=== PATIENT | female | born 1970 ===

== ENCOUNTER 2018-02-09 16:45 | Observation (INO) | payer BC ==
[2018-02-09] MEDS ORDERED: Sodium Chloride 0.9% 1,000 ML IV SCH (17:00)
--- NOTE | 2018-02-09 17:22 | CT ---
Date of service: 02/09/2018 PROCEDURE: CT HEAD WITHOUT CONTRAST. HISTORY: code stroke COMPARISON: None available. TECHNIQUE: Axial computed tomography images were obtained through the head/brain without intravenous contrast. Radiation dose: Total exam DLP = 728.59 mGy-cm. This CT exam was performed using one or more of the following dose reduction techniques: Automated exposure control, adjustment of the mA and/or kV according to patient size, and/or use of iterative reconstruction technique. FINDINGS: HEMORRHAGE: No intracranial hemorrhage. BRAIN: No mass effect or edema. No atrophy or chronic microvascular ischemic changes. VENTRICLES: Unremarkable. No hydrocephalus. CALVARIUM: Unremarkable. PARANASAL SINUSES: Unremarkable as visualized. No significant inflammatory changes. MASTOID AIR CELLS: Unremarkable as visualized. No inflammatory changes. OTHER FINDINGS: None. IMPRESSION: Normal CT of the Head. No intracranial mass, hemorrhage or evidence of acute infarct. The findings in this examination were discussed by telephone with Dr. Coreas at 5:17 p.m. on 02/09/2018.
--- NOTE | 2018-02-09 17:28 | ED PDOC ---
HPI:STROKE - Time Time: 17:00 - Historian Historian: Patient - Chief Complaint Chief Complaint: Numbness - Onset Date: 02/09/18 Time: 15:45 Onset: This afternoon - Context Context: Sitting - Location Locate right:: Upper extremity - Radiation Radiation: None - Severity of pain Maximum severity:: None - Notes: Notes:: 47y/o female with a PMHx of HTN presents to the ED for evaluation of left arm numbness, onset at 3:45 PM this afternoon. Patient states she was typing while at work when she developed left arm numbness from the shoulder to the hand. Patient reports she has been experiencing financial stress recently and was emotional when she developed a "crink" in her neck last week. Patient additionally reports of feeling "cloudiness" and a pressure like sensation to the head for the past week. However, patient denies headaches Patient states after waking up, she has since felt neck stiffness. Patient reports she went to her PMD on Friday where she had an EKG done that resulted in slight abnormality. However, patient states her PMD said it was not concerning due to her change in diet while taking her HTN medication. Patient reports recently changed her diet and started eating less sodium and carbohydrates. Patient states her PMD lowered her HTN due to this change in diet. Patient denies visual changes and weakness. PMD: Aneesh Villagomez NIHSS Stroke Scale - Date/Time Evaluation Performed Date Performed: 02/09/18 Time Performed: 17:15 When Was NIHSS Performed: Code Stroke - How Severe is the Stroke Level of Consciousness: 0=Alert LOC to Questions: 0=Both comments correct LOC to commands: 0=Obeys both correctly Best Gaze: 0=Normal Visual: 0=No visual loss Facial: 0=Normal Motor Arm - Left: 0=No drift Motor Arm - Right: 0=No drift Motor Leg - Left: 0=No drift Motor Leg - Right: 0=No drift Limb Ataxia: 0=Absent Sensory: 0=Normal Best Language: 0=No aphasia Dysarthia: 0=Normal articulation Extinction & Inattention (Neglect): 0=Normal, no object Score: 0 rTPA Inclusion/Exclusion - Refusal of Treatment Patient Refused Treatment: No - Inclusion Criteria for Altepase Patient is 18 years or Older: Yes The Clinical Diagnosis of Ischemic Stroke That is Causing a Potentially Disablin g Neurological Deficit: No Time of Onset is Well Established to be Less Than 270 Minute Before Treatment Would Begin: Yes Risk/Benefit Discussed With Patient/Family Member Present: No - Exclusion Criteria for Altepase Uncontrolled Hypertension at Time of Treatment (Systolic BP above 185 or Diastolic BP above 110 mmHg): No Active Internal Bleeding: No Known Bleeding Diathesis Including but Not Limited to: Platelets Below 100,000/mm,PTT Above 40 sec After Heparin Use, Current Use of Oral Anitcoagulant With INR Greater Than 1.7 or PT Greater Than 15 secs: No Evidence of an Intracranial Hemorrhage: No Evidence of Major Acute Infarct With Signs Greater Than 1/3 MCA Territory: No Suspicion of Subarachnoid Hemorrhage on Pretreatment Evaluation Even if CT Head Negative For Hemorrhage: No Past Medical History Reviewed: Historical Data, Nursing Documentation, Vital Signs Vital Signs: Last Vital Signs Temp 98.6 F 02/09/18 16:57 Pulse 88 02/09/18 16:57 Resp 18 02/09/18 16:57 BP 148/98 H 02/09/18 16:57 Pulse Ox 99 02/09/18 16:57 - Medical History PMH: HTN - Surgical History Surgical History: Appendectomy, Tonsillectomy - Family History Family History: States: Unknown Family Hx - Social History Current smoker - smoking cessation education provided: No Alcohol: None Drugs: Denies - Immunization History Hx Tetanus Toxoid Vaccination: No Hx Influenza Vaccination: No Hx Pneumococcal Vaccination: No - Home Medications Home Medications: Ambulatory Orders Medication Instructions Recorded Lisinopril [Zestril] 10 mg PO DAILY 05/19/16 - Allergies Allergies/Adverse Reactions: Allergies Allergy/AdvReac Type Severity Reaction Status Date / Time moxifloxacin HCl Allergy RASH Verified 05/19/16 16:12 [From Avelox] Review of Systems ROS Statement: Except As Marked, All Systems Reviewed And Found Negative Eyes: Negative for: Vision Change Musculoskeletal: Positive for: Neck Pain Neurological: Positive for: Numbness, Other ("cloudiness"/"pressure-like sensation"). Negative for: Weakness, Headache Physical Exam - Reviewed Nursing Documentation Reviewed: Yes Vital Signs Reviewed: Yes - Physical Exam Appears: Positive for: No Acute Distress Head Exam: Positive for: ATRAUMATIC, NORMOCEPHALIC Skin: Positive for: Normal Color, Warm, Dry Eye Exam: Positive for: Normal appearance, EOMI, PERRL Neck: Positive for: Normal Cardiovascular/Chest: Positive for: Regular Rate, Rhythm. Negative for: Murmur Respiratory: Positive for: Normal Breath Sounds. Negative for: Respiratory Distress Gastrointestinal/Abdominal: Positive for: Normal Exam, Soft. Negative for: Tenderness Extremity: Positive for: Normal ROM. Negative for: Deformity Neurologic/Psych: Positive for: Alert, roofer helper II-XII (intact), Oriented (x3), Cerebellar Tests (normal), Gait (steady). Negative for: Motor/Sensory Deficits, Aphasia, Facial Droop - Laboratory Results Result Diagrams: 02/09/18 17:19 02/09/18 17:19 - ECG Interpretation Of ECG: NSR @ 78, no ST-T changes. O2 Sat by Pulse Oximetry: 99 (RA) Pulse Ox Interpretation: Normal Medical Decision Making Medical Decision Making: Time: 1658 Impression: Possible Stroke Plan: -- Code Stroke called -- CT Head w/o Contrast -- EKG -- Stroke Team Consult -- CXR Portable XR -- Glucose, POC -- Manager Functional -- Call Stroke Team Consult -- ED Obtain Labs -- Glucose, Blood, POC -- Nursing Swallow Screen -- Vital Signs Q15MIN Time: 151 -- Received call from radiologist who reports CT Head is negative. Time: 171 Plan: -- Sodium Chloride 0.9% IV 100 mls/hr -- PTT -- Prothrombin time -- CBC with Differentials -- Troponin I -- Lipid Panel -- Hemoglobin A1C -- CMP -- Type and Screen Time: 173 Plan: -- Aspirin 325 mg PO Time: 1739 -- Spoke to neurologist, Dr. Abel at this time who states patient is not a candidate for tPa. Patient to be admitted for MRI. Scribe Attestation: Documented by Gisela Delaney, acting as a scribe for Massiel Coreas MD Provider Scribe Attestation: All medical record entries made by the Chandra were at my direction and person ally dictated by me. I have reviewed the chart and agree that the record accurately reflects my personal performance of the history, physical exam, medical decision making, and the department course for this patient. I have also personally directed, reviewed, and agree with the discharge instructions and disposition. Disposition - Clinical Impression Clinical Impression: LUE numbness - Patient ED Disposition Is Patient to be Admitted: Yes - Disposition Disposition Time: 18:32 Condition: STABLE - Pt Status Changed To: Hospital Disposition Of: Inpatient - Admit Certification Admit to Inpatient:: After my assessment, the patient will require hospitalization for at least two midnights. This is because of the severity of symptoms shown, intensity of services needed, and/or the medical risk in this patient being treated as an outpatient. - POA Present On Arrival: None
[2018-02-09 17:29] LABS: BASO # 0.1 K/uL (0.0-0.2); BASO % 0.8 % (0.0-2.0); EOS # 0.2 K/uL (0.0-0.7); EOS % 1.5 % (0.0-4.0); HEMOGLOBIN 13.3 g/dL (12.0-16.0); LYMPH # 3.4 K/uL (1.0-4.3); LYMPH % 30.6 % (20.0-40.0); MEAN CELL VOLUME 80.2 fl (81.0-99.0); MEAN CORPUSCULAR HEMOGLOBIN 26.4 pg (27.0-31.0); MEAN CORPUSCULAR HGB CONC 32.9 g/dL (33.0-37.0); MEAN PLATELET VOLUME 9.3 fl (7.2-11.7); MONO % 8.6 % (0.0-10.0); NEUT # 6.6 K/uL (1.8-7.0); NEUT % 58.5 % (50.0-75.0); NRBC % 0.1 % (0.0-0.0); RBC 5.03 Mil/uL (3.80-5.20); RED CELL DISTRIBUTION WIDTH 13.3 % (11.5-14.5); WHITE BLOOD COUNT 11.2 K/uL (4.8-10.8)
[2018-02-09 17:39] LABS: ALB/GLOB RATIO 1.3 (1.0-2.1); ALBUMIN 4.5 g/dL (3.5-5.0); ALT/SGPT 32 U/L (9-52); AST/SGOT 27 U/L (14-36); BLOOD UREA NITROGEN 19 mg/dl (7-17); CALCIUM 9.5 mg/dL (8.4-10.2); GFR NON-AFRICAN AMERICAN 60; HDL CHOLESTEROL 45 MG/DL (30-70)
[2018-02-09 17:42] LABS: PROTHROMBIN TIME 10.8 Seconds (9.8-13.1)
[2018-02-09 17:44] LABS: PARTIAL THROMBOPLASTIN TIME 33.7 Seconds (25.6-37.1)
--- NOTE | 2018-02-09 17:46 | RAD ---
Date of service: 02/09/2018 HISTORY: Code Stroke COMPARISON: No prior. FINDINGS: LUNGS: No active pulmonary disease. PLEURA: No significant pleural effusion identified, no pneumothorax apparent. CARDIOVASCULAR: No aortic atherosclerotic calcification present OSSEOUS STRUCTURES: No significant abnormalities. VISUALIZED UPPER ABDOMEN: Normal. OTHER FINDINGS: None. IMPRESSION: No active disease.
[2018-02-09 17:50] LABS: LDL CHOLESTEROL 99 mg/dL (0-129)
[2018-02-10 04:41] VITALS: RESP 18
--- NOTE | 2018-02-10 06:55 | CARD ---
APPROVED REPORT Date of service: 02/09/2018 EKG Measurement Heart [id number] <Conclusion> Normal sinus rhythm Normal ECG
[2018-02-10] MEDS ORDERED: Omega-3-Acid Ethyl Esters 1 GM Cap PO SCH (09:00)
--- NOTE | 2018-02-10 11:10 | MRI ---
Date of service: 02/09/2018 PROCEDURE: MRI BRAIN WITHOUT CONTRAST HISTORY: LUE numbness COMPARISON: Noncontrast head CT from 02/09/2018 TECHNIQUE: Multiplanar, multisequence MR images of the brain were obtained without intravenous contrast enhancement. FINDINGS: HEMORRHAGE: None DWI: No evidence of an acute or early subacute infarction. BRAIN PARENCHYMA: Smith-white matter differentiation is preserved. There is a 1.5 x 1.8 x 3.6 cm CSF intensity left paramedian retro cerebellar mass with mild mass effect on the posterior medial cerebellar hemisphere without vasogenic edema or midline shift. There is no abnormal extra-axial fluid collection. There is no territorial infarction. The midline sagittal structures are normal. VENTRICLES: There is mild age-related global parenchymal volume loss and proportionate enlargement of the ventricles and cortical sulci. CRANIUM: There is normal bone marrow signal pattern. ORBITS: Grossly unremarkable. PARANASAL SINUSES/MASTOIDS: Predominantly clear. VASCULAR SYSTEM: There are normal signal voids in the larger intracranial arteries. OTHER FINDINGS: None. IMPRESSION: No acute intracranial abnormality. Mild global parenchymal volume loss, slightly advanced for the patient's age. 1.5 x 1.8 x 3.6 cm left paramedian retro cerebellar CSF intensity mass presumably an arachnoid cyst without evidence of mass effect midline shift or vasogenic edema in the left cerebellar hemisphere.
--- NOTE | 2018-02-10 12:08 | CP.PCM.HP ---
History of Present Illness - History of Present Illness History of Present Illness: 47y/o female with a PMHx of HTN presents to the ED c/o left arm numbness x 1 day. Patient states she was typing while at work when she developed left arm numbness from the shoulder to the hand. Also she states she has been having some neck pain and stiffness since last week. She reports she has been experiencing financial stress recently and has been very emotional. She went to her PMD they did an EKG that was "abnormal" but PMD change BP medications. Otherwise she denies vision changes, headaches, chest pain, palpitations, sob, weakness or tingling. PMD: Aneesh Villagomez PMH: HTN PSH: Appendectomy, Tonsillectomy allergies to moxifloxacin ( hives) Meds: as bellow FMH: noncontributory SH: denies etoh, tobacco, drugs Present on Admission - Present on Admission Any Indicators Present on Admission: No Review of Systems - Review of Systems All systems: reviewed and no additional remarkable complaints except (HPI) Past Patient History - Past Social History Smoking Status: Former Smoker - CARDIAC Hx Cardiac Disorders: Yes - PULMONARY Hx Respiratory Disorders: No - NEUROLOGICAL Hx Neurological Disorder: No - HEENT Hx HEENT Problems: No - RENAL Hx Chronic Kidney Disease: No - ENDOCRINE/METABOLIC Hx Endocrine Disorders: No - HEMATOLOGICAL/ONCOLOGICAL Hx Blood Disorders: No - INTEGUMENTARY Hx Dermatological Problems: No - MUSCULOSKELETAL/RHEUMATOLOGICAL Hx Musculoskeletal Disorders: No - GASTROINTESTINAL Hx Gastrointestinal Disorders: No - GENITOURINARY/GYNECOLOGICAL Hx Genitourinary Disorders: No - PSYCHIATRIC Hx Psychophysiologic Disorder: No - SURGICAL HISTORY Hx Surgeries: Yes Hx Appendectomy: Yes Hx Tonsillectomy: Yes Other/Comment: oophorectomy with multiple fibroid removal,as per pt she has no menstruation since 2012 - ANESTHESIA Hx Anesthesia: Yes Hx Anesthesia Reactions: No Hx Malignant Hyperthermia: No Has any member of the family had a problem w/ anesthesia?: No Meds Home Medications: Home Medication List Medication Instructions Recorded Confirmed Type [id number]-[id number] Ethyl Esters 1 GM 2 gm PO BID #60 sgl 02/10/18 Rx [Lovaza] Allergies/Adverse Reactions: Allergies Allergy/AdvReac Type Severity Reaction Status Date / Time moxifloxacin HCl Allergy RASH Verified 05/19/16 16:12 [From Avelox] Physical Exam - Constitutional Appears: No Acute Distress - Head Exam Head Exam: NORMAL INSPECTION - Eye Exam Eye Exam: EOMI, PERRL. absent: Nystagmus - Respiratory Exam Respiratory Exam: Clear to Auscultation Bilateral - Cardiovascular Exam Cardiovascular Exam: REGULAR RHYTHM, +S1, +S2 - GI/Abdominal Exam GI & Abdominal Exam: Soft. absent: Distended, Tenderness - Extremities Exam Extremities exam: Negative for: calf tenderness, pedal edema - Neurological Exam Neurological exam: Alert, CN II-XII Intact, Oriented x3 - Skin Skin Exam: Dry, Warm Results - Vital Signs Recent Vital Signs: Last Vital Signs Temp 98.6 F 02/10/18 08:00 Pulse 65 02/10/18 09:22 Resp 18 02/10/18 08:00 BP 111/70 02/10/18 09:22 Pulse Ox 96 02/10/18 08:00 - Labs Result Diagrams: 02/09/18 17:19 02/09/18 17:19 Labs: Laboratory Results - last 24 hr 02/09/18 02/09/18 02/09/18 16:57 17:19 17:19 WBC 11.2 H RBC 5.03 Hgb 13.3 Hct 40.3 MCV 80.2 L MCH 26.4 L MCHC 32.9 L RDW 13.3 Plt Count 242 MPV 9.3 Neut % (Auto) 58.5 Lymph % (Auto) 30.6 [place] % (Auto) 8.6 Eos % (Auto) 1.5 Baso % (Auto) 0.8 Neut # (Auto) 6.6 Lymph # (Auto) 3.4 [place] # (Auto) 1.0 H Eos # (Auto) 0.2 Baso # (Auto) 0.1 PT INR APTT Sodium 140 Potassium 3.6 Chloride 104 Carbon Dioxide 30 Anion Gap 10 BUN 19 H Creatinine 1.0 Est GFR ( Amer) > 60 Est GFR (Non-Af Amer) 60 POC Glucose (mg/dL) 78 Random Glucose 93 Calcium 9.5 Total Bilirubin 0.3 AST 27 ALT 32 Alkaline Phosphatase 80 Troponin I < 0.0120 Total Protein 8.1 Albumin 4.5 Globulin 3.6 Albumin/Globulin Ratio 1.3 Triglycerides 248 H Cholesterol 173 LDL Cholesterol Direct 99 HDL Cholesterol 45 Blood Type Antibody Screen BBK History Checked 02/09/18 02/09/18 17:19 17:19 WBC RBC Hgb Hct MCV MCH MCHC RDW Plt Count MPV Neut % (Auto) Lymph % (Auto) [place] % (Auto) Eos % (Auto) Baso % (Auto) Neut # (Auto) Lymph # (Auto) [place] # (Auto) Eos # (Auto) Baso # (Auto) PT 10.8 INR 1.0 APTT 33.7 Sodium Potassium Chloride Carbon Dioxide Anion Gap BUN Creatinine Est GFR ( Amer) Est GFR (Non-Af Amer) POC Glucose (mg/dL) Random Glucose Calcium Total Bilirubin AST ALT Alkaline Phosphatase Troponin I Total Protein Albumin Globulin Albumin/Globulin Ratio Triglycerides Cholesterol LDL Cholesterol Direct HDL Cholesterol Blood Type B NEGATIVE Antibody Screen Negative BBK History Checked No verified bt Assessment & Plan - Assessment and Plan (Free Text) Assessment: 47 yo female patient with PMH of HTN admitted due to LUE numbness x1 day, r/o CVA Plan: - admit to tele - ASA - Head CT negative - Neurology consulted, input appreciated - labs wnl - f/U brain MRI - PT/OT eval - rest of plan as ordered Case seen and examined with Dr Lopez
[2018-02-10 12:43] VITALS: BP 131/77; PULSE 77; TEMP 97.3; O2SAT 98
--- NOTE | 2018-02-10 13:48 | CP.PCM.CON ---
History of Present Illness - History of Present Illness History of Present Illness: Neurology consult dictated. In brief, patient most likely has cervical radiculopathy and now is stable. he does not appear to have had a stroke. Cleared to be discharged home with outpatient Cervical MRI . Thank you Dr. lovett Past Patient History - Past Social History Smoking Status: Former Smoker - CARDIAC Hx Cardiac Disorders: Yes - PULMONARY Hx Respiratory Disorders: No - NEUROLOGICAL Hx Neurological Disorder: No - HEENT Hx HEENT Problems: No - RENAL Hx Chronic Kidney Disease: No - ENDOCRINE/METABOLIC Hx Endocrine Disorders: No - HEMATOLOGICAL/ONCOLOGICAL Hx Blood Disorders: No - INTEGUMENTARY Hx Dermatological Problems: No - MUSCULOSKELETAL/RHEUMATOLOGICAL Hx Musculoskeletal Disorders: No - GASTROINTESTINAL Hx Gastrointestinal Disorders: No - GENITOURINARY/GYNECOLOGICAL Hx Genitourinary Disorders: No - PSYCHIATRIC Hx Psychophysiologic Disorder: No - SURGICAL HISTORY Hx Surgeries: Yes Hx Appendectomy: Yes Hx Tonsillectomy: Yes Other/Comment: oophorectomy with multiple fibroid removal,as per pt she has no menstruation since 2012 - ANESTHESIA Hx Anesthesia: Yes Hx Anesthesia Reactions: No Hx Malignant Hyperthermia: No Has any member of the family had a problem w/ anesthesia?: No Meds Home Medications: Home Medication List Medication Instructions Recorded Confirmed Type Zowpo-0-Ecvr Ethyl Esters 1 GM 2 gm PO BID #60 sgl 02/10/18 Rx [Lovaza] Allergies/Adverse Reactions: Allergies Allergy/AdvReac Type Severity Reaction Status Date / Time moxifloxacin HCl Allergy RASH Verified 05/19/16 16:12 [From Avelox] - Medications Medications: Current Medications Aspirin (Ecotrin) 81 mg PO DAILY [facility] Last Admin: 02/10/18 09:22 Dose: 81 mg Atorvastatin Calcium (Lipitor) 10 mg PO DAILY [facility] Last Admin: 02/10/18 10:43 Dose: 10 mg Sodium Chloride (Sodium Chloride 0.9%) 1,000 mls @ 100 mls/hr IV .Q10H [facility] Last Admin: 02/09/18 18:17 Dose: 100 mls/hr Lisinopril (Zestril) 10 mg PO DAILY [facility] Last Admin: 02/10/18 09:22 Dose: 10 mg Vxdmx-7-Rjqr Ethyl Esters (Lovaza) 2 gm PO BID [facility] Last Admin: 02/10/18 09:22 Dose: 2 gm Results - Vital Signs Recent Vital Signs: Last Vital Signs Temp 97.3 F L 02/10/18 12:00 Pulse 77 02/10/18 12:00 Resp 18 02/10/18 12:00 BP 131/77 02/10/18 12:00 Pulse Ox 98 02/10/18 12:00 - Labs Result Diagrams: 02/09/18 17:19 02/09/18 17:19 Labs: Laboratory Results - last 24 hr 02/09/18 02/09/18 02/09/18 16:57 17:19 17:19 WBC 11.2 H RBC 5.03 Hgb 13.3 Hct 40.3 MCV 80.2 L MCH 26.4 L MCHC 32.9 L RDW 13.3 Plt Count 242 MPV 9.3 Neut % (Auto) 58.5 Lymph % (Auto) 30.6 [place] % (Auto) 8.6 Eos % (Auto) 1.5 Baso % (Auto) 0.8 Neut # (Auto) 6.6 Lymph # (Auto) 3.4 [place] # (Auto) 1.0 H Eos # (Auto) 0.2 Baso # (Auto) 0.1 PT INR APTT Sodium 140 Potassium 3.6 Chloride 104 Carbon Dioxide 30 Anion Gap 10 BUN 19 H Creatinine 1.0 Est GFR ( Amer) > 60 Est GFR (Non-Af Amer) 60 POC Glucose (mg/dL) 78 Random Glucose 93 Calcium 9.5 Total Bilirubin 0.3 AST 27 ALT 32 Alkaline Phosphatase 80 Troponin I < 0.0120 Total Protein 8.1 Albumin 4.5 Globulin 3.6 Albumin/Globulin Ratio 1.3 Triglycerides 248 H Cholesterol 173 LDL Cholesterol Direct 99 HDL Cholesterol 45 Blood Type Antibody Screen BBK History Checked 02/09/18 02/09/18 17:19 17:19 WBC RBC Hgb Hct MCV MCH MCHC RDW Plt Count MPV Neut % (Auto) Lymph % (Auto) [place] % (Auto) Eos % (Auto) Baso % (Auto) Neut # (Auto) Lymph # (Auto) [place] # (Auto) Eos # (Auto) Baso # (Auto) PT 10.8 INR 1.0 APTT 33.7 Sodium Potassium Chloride Carbon Dioxide Anion Gap BUN Creatinine Est GFR ( Amer) Est GFR (Non-Af Amer) POC Glucose (mg/dL) Random Glucose Calcium Total Bilirubin AST ALT Alkaline Phosphatase Troponin I Total Protein Albumin Globulin Albumin/Globulin Ratio Triglycerides Cholesterol LDL Cholesterol Direct HDL Cholesterol Blood Type B NEGATIVE Antibody Screen Negative BBK History Checked No verified bt
--- NOTE | 2018-02-10 20:34 | CARD ---
APPROVED REPORT Date of service: 02/10/2018 EXAM: Two-dimensional and M-mode echocardiogram with Doppler and color Doppler. Other Information Quality : GoodRhythm : NSR INDICATION CVA/TIA Hypertension/HCVD 2D DIMENSIONS IVSd1.00 (0.7-1.1cm)LVDd4.73 (3.9-5.9cm) LVOT Diameter2.12 (1.8-2.4cm)PWd0.91 (0.7-1.1cm) IVSs1.36 (0.8-1.2cm)LVDs2.97 (2.5-4.0cm) FS (%) 37.2 %PWs1.18 (0.8-1.2cm) M-Mode DIMENSIONS Left Atrium (MM)4.94 (2.5-4.0cm)IVSd1.12 (0.7-1.1cm) Aortic Root3.03 (2.2-3.7cm)LVDd5.59 (4.0-5.6cm) Aortic Cusp Exc.2.26 (1.5-2.0cm)PWd0.82 (0.7-1.1cm) IVSs1.50 cmFS (%) 46 % LVDs3.03 (2.0-3.8cm)PWs1.62 cm Aortic Valve AoV Peak Ncimnwyo831.4cm/sAoV VTI27.3cmAO Peak GR.7mmHg LVOT Peak Bqhkdpxt573.3cm/sLVOT VTI24.61cmAO Mean GR.4mmHg JENNIFER (VMAX)1.00yj5PUI (VTI)1.54cm2 Mitral Valve MV E Eduppips55.4cm/sMV DECEL [id number] A Iuqzxgob56.4cm/s MV RYH19moC/A ratio1.2MVA (PHT)3.27cm2 TDI Lateral E' Peak V15.97cm/sMedial E' Peak V9.78cm/sE/Lateral E'4.3 E/Medial E'7.1 Pulmonary Valve PV Peak Stngpnoj855.9cm/s LEFT VENTRICLE The left ventricle is normal size. There is normal left ventricular wall thickness. The left ventricular systolic function is normal. The estimated ejection fraction is 60-65% No regional wall motion abnormalities noted.. The left ventricular diastolic function is normal. No left ventricle thrombus noted on this study. There is no ventricular septal defect visualized. There is no left ventricular aneurysm. There is no mass noted in the left ventricle. RIGHT VENTRICLE The right ventricle is normal size. There is normal right ventricular wall thickness. The right ventricular systolic function is normal. ATRIA The left atrium is mildly dilated. The right atrium size is normal. The interatrial septum is intact with no evidence for an atrial septal defect. Cannot r/o PFO. Consider MAHIN if clinically indicated. AORTIC VALVE The aortic valve is normal in structure. No aortic regurgitation is present. There is no aortic valvular stenosis. There is no aortic valvular vegetation. MITRAL VALVE The mitral valve is normal in structure. There is no evidence of mitral valve prolapse. There is no mitral valve stenosis. There is trace mitral valve regurgitation noted. TRICUSPID VALVE The tricuspid valve is normal in structure. There is no tricuspid valve regurgitation noted. There is no tricuspid valve prolapse or vegetation. There is no tricuspid valve stenosis. PULMONIC VALVE The pulmonary valve is normal in structure. There is no pulmonic valvular regurgitation. There is no pulmonic valvular stenosis. GREAT VESSELS The aortic root is normal in size. The ascending aorta is normal in size. The pulmonary artery is normal. The IVC is normal in size and collapses >50% with inspiration. PERICARDIAL EFFUSION There is no pericardial effusion. There is no pleural effusion. <Conclusion> The estimated ejection fraction is 60-65% The left ventricular diastolic function is normal. The left atrium is mildly dilated. There is trace mitral valve regurgitation noted.
--- NOTE | 2018-02-11 00:48 | CON ---
DATE: 02/10/2018 HISTORY OF PRESENT ILLNESS: This is a 47-year-old woman, who came in yesterday complaining of transient left arm numbness and discomfort at 17:26. It started at 02:45 earlier during the day. The patient was typing while at work and she felt left hand numbness from shoulder to the hand with no weakness. 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 However, she denies headache, aphasia, weakness, facial droop, or any other issues. NIH stroke scale 0. REVIEW OF SYSTEMS: Today is negative for headache, aphasia, weakness, nausea, vomiting, or diarrhea. PAST MEDICAL HISTORY: Significant for hypertension. PAST SURGICAL HISTORY: Significant of appendectomy and tonsillectomy. FAMILY HISTORY: No tobacco, no alcohol. She is , does not have children. 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 ALLERGIES: MOXIFLOXACIN. She was started on Zestril and admitted to telemetry. Overnight, she did well. Today, she had no other symptoms. PHYSICAL EXAMINATION NEUROLOGIC: Completely normal except for pain on palpation of left trapezius muscle and sternocleidomastoid. is normal. Sensory is normal. Reflexes are normal upper and lower bilaterally. LABORATORY DATA: Labs were normal except for her triglycerides which is 248, cholesterol 173, albumin 9, and HDL 45. CT showed arachnoid cyst. MRI of the brain confirmed the patient has an arachnoid cyst in cerebellar hemisphere with no edema and no hemorrhage and no new stroke. IMPRESSION: This is a 47-year-old woman with a newly diagnosed arachnoid cyst. However, this is not the etiology of her symptomatology. I do believe this is secondary to cervical radiculopathy. PLAN: 1. Physical therapy as outpatient. 2. Nonsteroidal anti-inflammatories. 3. Referred to neurosurgeon for evaluation of arachnoid cyst. Our team will follow. Thank you for this interesting consult. Melinda Abel MD
== END 2018-02-10 14:30 | disposition home or self-care (01) ==
LOC: H.ER 16:45 → INTOOBSV 18:32 → H.ERHOLD 18:32 → H.TEL 23:04
PROVIDERS: ADMIT Family Medicine; ATTEND Family Medicine
DX: R20.0 Anesthesia of skin (principal); I10 Essential (primary) hypertension; Z87.891 Personal history of nicotine dependence; G93.0 Cerebral cysts
CPT/HCPCS: 70450; 70551; 71045; 80053; 80061; 82948; 83036; 84484; 85025; 85610; 85730; 86850; 86900; 93005; 93306; 97161; 97165; 99284; G0378; G8978; G8979; G8980; G8987; G8988; G8989; J7030